=== PATIENT | female | born 1960 | race Hispanic/Latino ===

== ENCOUNTER 2021-04-03 09:29 | Outpatient (CLI) | payer OTHER | END 2021-04-03 09:30 | disposition home or self-care (01) | LOC: CSHMAMMO 09:29 | PROVIDERS: ATTEND Internal Medicine Rheumatology | DX: M81.0 Age-related osteoporosis without current pathological fracture (principal) | CPT/HCPCS: 77080 ==

== ENCOUNTER 2023-02-17 14:05 | Outpatient (CLI) | payer OTHER | END 2023-02-17 14:06 | disposition home or self-care (01) | LOC: CSHMAMMO 14:05 | PROVIDERS: ATTEND Internal Medicine Rheumatology | DX: M81.0 Age-related osteoporosis without current pathological fracture (principal); M85.88 Other specified disorders of bone density and structure, other site | CPT/HCPCS: 77080 ==

== ENCOUNTER 2024-10-20 14:31 | Outpatient (CLI) | payer MEDICARE, OTHER | END 2024-10-20 14:32 | disposition home or self-care (01) | LOC: CSHMAMMO 14:31 | PROVIDERS: ATTEND Family Medicine | DX: Z12.31 Encounter for screening mammogram for malignant neoplasm of breast (principal); M81.0 Age-related osteoporosis without current pathological fracture; M85.88 Other specified disorders of bone density and structure, other site | CPT/HCPCS: 77063; 77067; 77080 ==

== ENCOUNTER 2025-07-21 08:27 | Outpatient (CLI) | payer MEDICARE, OTHER ==
[2025-07-21 09:08] LABS: Estimated GFR - POC 71.0
== END 2025-07-21 08:28 | disposition home or self-care (01) ==
LOC: CSHMRI 08:27
PROVIDERS: ATTEND Internal Medicine Gastroenterology
DX: K52.9 Noninfective gastroenteritis and colitis, unspecified (principal); K74.3 Primary biliary cirrhosis; M32.9 Systemic lupus erythematosus, unspecified; M06.9 Rheumatoid arthritis, unspecified; L29.9 Pruritus, unspecified; K76.89 Other specified diseases of liver; N28.89 Other specified disorders of kidney and ureter; K56.1 Intussusception
CPT/HCPCS: 36415; 74183; 82565